=== PATIENT | female | born 1960 | race Caucasian/White ===

== ENCOUNTER 2016-10-13 20:22 | Emergency (ER) | payer OTHER ==
--- NOTE | 2016-10-13 20:36 | PDOC ---
History of Present Illness - General History Source: Patient Exam Limitations: No Limitations - History of Present Illness Initial Comments: 10/13/16 21:00 Patient is a 56 year old female with a significant past medical history of hypertension, osteoarthritis, and CLL who presents to the ED with right sided pelvic pain and right flank pain. Patient states that her pain initiates at the right side of the pelvis migrating to the right sided flank. She reports nausea , but denies vomiting. She reports mild vaginal bleeding today. Patient denies any hx of obstructing kidney stones. Patient notes that she had a D&C on . LMP 2 years ago. PCP - Dr. Fofana PAST MEDICAL HISTORY: no significant history PAST SURGICAL HISTORY: no significant history FAMILY HISTORY: no pertinent history SOCIAL HISTORY: Pt lives with family and is employed. MEDICATIONS: reviewed ALLERGIES: As per nursing notes General: No fevers or chills, no weakness, no weight loss HEENT: No change in vision. No sore throat, No ear pain CardioVascular: No chest pain or shortness of breath Respiratory:No cough, or wheezing. Gastrointestinal: +nausea/ No vomiting, diarrhea or constipation, No rectal bleeding Genitourinary: +right sided pelvic pain, +vaginal bleeding. No dysuria, hematuria, or frequency Musculoskeletal: +right flank pain. No joint or muscle pain or swelling Neurologic: No headache, vertigo, dizziness or loss of consciousness Psychiatric: nor depression Skin: No rashes or easy bruising Endocrine: no increased thirst or abnormal weight change Allergic: no skin or latex allergy All other systems reviewed and normal General: Well-nourished well-developed individual, no acute distress HEENT: Throat: Normal, tonsils normal, no erythema or exudate Neck: Supple, no meningeal signs, no lymphadenopathy Eyes:Pupils equal reactive and round, extraocular motion intact Chest: Nontender to palpation Cardiac: S1-S2 normal, regular rate and rhythm, no murmurs rubs or gallops Respiratory: Lungs clear to auscultation bilateral Abdomen: Soft, nondistended, normal bowel sounds, nontender to palpation diffusely Extremities: Warm, dry, no cyanosis, clubbing, or edema Musculoskeletal: (+)Right CVA area and right flank tenderness. Skin: No rashes Neuro: Alert and oriented x3, nonfocal exam, grossly intact, normal gait Psych: Normal mood and affect <Mary Ann Dickerson - Last Filed: 10/13/16 21:00> - General History Source: Patient Exam Limitations: No Limitations - History of Present Illness Initial Comments: 10/13/16 22:32 A portion of this note was documented by scribe services under my direction. I have reviewed the details of the note, within reason, and agree with the documentation. The case summary and management plan written by me. Assessment and plan: This is a 56-year-old female who comes in complaining of right flank pain. Patient had a workup including a CAT scan that showed a 3-4 mm stone at the right U P.J. The patient given prescriptions for Percocet and Flomax. Patient was told to follow-up with a urologist and strain her urine. Patient's blood work did show a markedly elevated white count of 28,000. However patient has CLL and her baseline white count she said is normally around 34,000. <Apryl Hilton I - Last Filed: 10/13/16 22:38> - General Chief Complaint: Pain Stated Complaint: PELVIC PAIN Time Seen by Provider: 10/13/16 20:36 Past History <Mary Ann Dickerson - Last Filed: 10/13/16 21:00> - Past Medical History Cancer: Yes (cll) HTN: Yes HIV: Yes - Surgical History Cholecystectomy: Yes - Reproductive History (#): 2 Para: 2 - Psycho/Social/Smoking Cessation Hx Anxiety: No Suicidal Ideation: No Smoking History: Unknown if ever smoked Have you smoked in the past 12 months: No Hx Alcohol Use: No Substance Use Type: None <Apryl Hilton I - Last Filed: 10/13/16 22:38> - Past Medical History Allergies/Adverse Reactions: Allergies Allergy/AdvReac Type Severity Reaction Status Date / Time bee venom protein (honey bee) Allergy Severe Verified 10/13/16 21:26 latex Allergy Mild Verified 10/13/16 20:35 contrast dye Allergy Uncoded 11/16/13 22:08 Home Medications: Ambulatory Orders Ondansetron [Zofran Odt -] 4 mg SL TID PRN #14 od.tablet 11/17/13 Duloxetine HCl [Cymbalta] 60 mg PO HS 10/13/16 Etodolac [Etodolac ER] 500 mg PO DAILY PRN 10/13/16 Hydrochlorothiazide [Hctz -] 12.5 mg PO DAILY PRN 10/13/16 Hydrocodone/Acetaminophen [Vicodin Hp 10-300 mg Tablet] 1 each PO QID PRN Lutein Extract/Zeaxanthin Ext [Lutein 15 mg Softgel] 1 each PO DAILY 10/13/16 Metoprolol Succinate [Toprol Xl] 50 mg PO HS 10/13/16 Omeprazole 20 mg PO ASDIR PRN 10/13/16 Oxycodone HCl/Acetaminophen [Percocet 5-325 mg Tablet] 1 - 2 tab PO Q4H #20 tablet MDD 8 10/13/16 Pregabalin [Lyrica -] 75 mg PO BID 10/13/16 Tamsulosin HCl [Flomax] 0.4 mg PO DAILY #30 cap.er.24h 10/13/16 *Physical Exam - Vital Signs Last Vital Signs Temp Pulse Resp BP Pulse Ox 98.6 F 88 15 177/85 100 10/13/16 20:34 10/13/16 20:34 10/13/16 20:34 10/13/16 20:34 10/13/16 20:34 <Mary Ann Dickerson - Last Filed: 10/13/16 21:00> ED Treatment Course - LABORATORY CBC & Chemistry Diagram: 10/13/16 21:00 10/13/16 21:00 <Apryl Hilton I - Last Filed: 10/13/16 22:38> *DC/Admit/Observation/Transfer - Attestations Scribe Attestion: 10/13/16 21:01 Documentation prepared by ALEXIS Key, acting as medical librarian for Apryl Hilton MD. <Mary Ann Dickerson - Last Filed: 10/13/16 21:00> - Discharge Dispostion Admit: No <Apryl Hilton I - Last Filed: 10/13/16 22:38> Diagnosis at time of Disposition: Renal colic on right side - Discharge Dispostion Disposition: HOME Condition at time of disposition: Good - Prescriptions Prescriptions: Tamsulosin HCl [Flomax] 0.4 mg PO DAILY #30 cap.er.24h Oxycodone HCl/Acetaminophen [Percocet 5-325 mg Tablet] 1 - 2 tab PO Q4H #20 tablet MDD 8 - Referrals Referrals: Jacob oFfana MD [Primary Care Provider] - Boaz Logan MD [Staff Physician] - - Patient Instructions Printed Discharge Instructions: DI for Kidney Stones Additional Instructions: for the pain you can take ibuprofen however it may not be strong enough and you may need to take something stronger if he needs something stronger take Percocet one or 2 tablets as often as every 8 hours. If you take a Percocet you cannot drive or do anything that requires your concentration. Strain your urine. For nausea take your Zofran. Take Flomax to help keep the urine flowing. Follow-up with a urologist this week if possible. Dr. Logan. Return to the emergency department immediately with ANY new, persistent or worsening symptoms. Continue any medications as previously prescribed by your physician. You should follow up with your primary doctor as soon as possible regarding today's emergency department visit. . Please make sure your doctor reviews the results of your emergency evaluation. Thank you for coming to the Emergency Department today for your care. It was a pleasure to see you today. Please note that your evaluation is INCOMPLETE until you follow-up with your doctor.
[2016-10-13] MEDS ORDERED: SODIUM CHLORIDE 1,000 ML IV ONE (20:47)
[2016-10-13] MEDS ORDERED: KETOROLAC TROMETHAMINE 30 MG/1 ML VIAL IVPUSH ONE (20:47)
[2016-10-13] MEDS ORDERED: morphine CARPU-JECT 2 MG/1 ML DISP.SYRIN IVPUSH ONE (20:47)
[2016-10-13 20:53] VITALS: BP 177/85; PULSE 88; TEMP 98.6; BMI 28.7
[2016-10-13 21:03] LABS: PH,URINE 5.5 (4.5-8); URINE APPEARANCE Clear; URINE BILIRUBIN 2+ (NEGATIVE); URINE GLUCOSE (UA) Negative (NEGATIVE); URINE KETONE Negative (NEGATIVE); URINE NITRITE Negative (NEGATIVE); URINE PROTEIN Negative (NEGATIVE); URINE UROBILINOGEN 0.2 E.U/dl (0.2-1.0)
[2016-10-13] MEDS ORDERED: KETOROLAC TROMETHAMINE 30 MG/1 ML VIAL ONE (21:07)
[2016-10-13] MEDS ORDERED: morphine CARPU-JECT 2 MG/1 ML DISP.SYRIN ONE (21:07)
[2016-10-13 21:13] LABS: MCH 26.8 pg (25.7-33.7); MCHC 33.2 g/dl (32.0-36.0); MEAN CELL VOLUME 80.9 fl (80-96); MEAN PLT VOLUME 8.5 fl (7.5-11.1); PLATELET COUNT 263 K/MM3 (134-434); RDW 16.3 % (11.6-15.6); WHITE BLOOD COUNT 28.9 K/mm3 (4.0-10.8)
[2016-10-13 21:16] LABS: URINE BLOOD 3+ (NEGATIVE); URINE COLOR YELLOW; URINE LEUK ESTERASE 1+ (NEGATIVE)
[2016-10-13 21:29] LABS: ALBUMIN 4.3 g/dl (3.5-5.0); ALK PHOS 108 U/L (32-92); ANION GAP 10 (8-16); BILIRUBIN,TOTAL 0.4 mg/dl (0.2-1.0); CALCIUM 9.4 mg/dl (8.4-10.2); CO2 25 mmol/L (22-28); CREATININE 1.1 mg/dl (0.6-1.3); GLUCOSE,RANDOM 99 mg/dl (74-106); SGOT/AST 20 U/L (10-42); SGPT/ALT 20 U/L (10-40)
[2016-10-13 21:46] LABS: URINE RBC 20-30 /hpf (0-3)
[2016-10-13 21:47] LABS: URINE BACTERIA FEW /hpf (NEGATIVE)
[2016-10-13 21:55] LABS: PLATELET ESTIMATE ADEQUATE (NORMAL)
[2016-10-13] MEDS ORDERED: NITROFURANTOIN MACROCRYSTAL 50 MG CAPSULE (FP) ONE (22:40)
[2016-10-13] MEDS ORDERED: NITROFURANTOIN MACROCRYSTAL 50 MG CAPSULE (FP) PO SCH (22:45)
== END 2016-10-13 22:43 | disposition home or self-care (01) ==
LOC: FER 20:22
PROC: 3E0333Z Introduction of Anti-inflammatory into Peripheral Vein, Percutaneous Approach (ICD-10-PCS; principal; 2016-10-13)
PROC: 3E033NZ Introduction of Analgesics, Hypnotics, Sedatives into Peripheral Vein, Percutaneous Approach (ICD-10-PCS; 2016-10-13)
PROC: 3E0337Z Introduction of Electrolytic and Water Balance Substance into Peripheral Vein, Percutaneous Approach (ICD-10-PCS; 2016-10-13)
DX: N23 Unspecified renal colic (principal); I10 Essential (primary) hypertension; C91.10 Chronic lymphocytic leukemia of B-cell type not having achieved remission; M19.90 Unspecified osteoarthritis, unspecified site
CPT/HCPCS: 36415; 74176-TC; 80053; 81003; 81015; 85025; 99281-25

== ENCOUNTER 2016-10-18 02:28 | Inpatient (IN) | payer OTHER ==
[2016-10-18] MEDS ORDERED: morphine CARPU-JECT 10 MG/1 ML DISP.SYRIN IVPUSH ONE (02:36)
[2016-10-18] MEDS ORDERED: morphine CARPU-JECT 10 MG/1 ML DISP.SYRIN ONE (02:37)
--- NOTE | 2016-10-18 02:43 | PDOC ---
History of Present Illness - General Chief Complaint: Pain, Acute Stated Complaint: PAIN - History of Present Illness Initial Comments: 10/18/16 05:48 known R sided ureteral stone, scheduled for lithotripsy on Thursday presents with increased pain, now radiating to bladder no fever/ chills + urinary frequency pmh: CLL "they're just watching it" fhx: non-contributory ros: reviewed and otherwise negative pe: GENERAL: [The patient is awake, alert, and fully oriented, and in no apparent distress.] HEAD: [Normal with no signs of trauma.] EYES: [Pupils equal, round and reactive to light, extraocular movements intact, sclera anicteric, conjunctiva are normal.] ENT: [TMs normal, nares patent, oropharynx clear without exudates. Moist mucous membranes.] NECK: [Normal range of motion, supple without lymphadenopathy, JVD, or masses.] LUNGS: [Breath sounds equal, clear to auscultation bilaterally. No wheezes, and no crackles.] HEART: [Regular rate and rhythm, normal S1 and S2 without murmur, rub or gallop.] ABDOMEN: [Soft, nontender, normoactive bowel sounds. No guarding, no rebound. No masses appreciated.] BAck: + R CVAT EXTREMITIES: [Normal range of motion, no edema. No clubbing or cyanosis. No cords, erythema, or tenderness.] NEUROLOGICAL: [Cranial nerves II through XII grossly intact. Normal speech, normal gait.] PSYCH: [Normal mood, normal affect.] SKIN: [Warm, Dry, normal turgor, no rashes or lesions noted.] a/p ureterocolic analgesia image 10/18/16 06:11 10/18/16 06:56 Past History - Past Medical History Allergies/Adverse Reactions: Allergies Allergy/AdvReac Type Severity Reaction Status Date / Time bee venom protein (honey bee) Allergy Severe Verified 10/13/16 21:26 latex Allergy Mild Verified 10/13/16 20:35 contrast dye Allergy Uncoded 11/16/13 22:08 Home Medications: Ambulatory Orders Ondansetron [Zofran Odt -] 4 mg SL TID PRN #14 od.tablet 11/17/13 Duloxetine HCl [Cymbalta] 60 mg PO HS 10/13/16 Etodolac [Etodolac ER] 500 mg PO DAILY PRN 10/13/16 Hydrochlorothiazide [Hctz -] 12.5 mg PO DAILY PRN 10/13/16 Hydrocodone/Acetaminophen [Vicodin Hp 10-300 mg Tablet] 1 each PO QID PRN Lutein Extract/Zeaxanthin Ext [Lutein 15 mg Softgel] 1 each PO DAILY 10/13/16 Metoprolol Succinate [Toprol Xl] 50 mg PO HS 10/13/16 Nitrofurantoin Monohyd/M-Cryst [Macrobid -] 100 mg PO BID #14 capsule 10/13/16 Omeprazole 20 mg PO ASDIR PRN 10/13/16 Oxycodone HCl/Acetaminophen [Percocet 5-325 mg Tablet] 1 - 2 tab PO Q4H #20 tablet MDD 8 10/13/16 Pregabalin [Lyrica -] 75 mg PO BID 10/13/16 Tamsulosin HCl [Flomax] 0.4 mg PO DAILY #30 cap.er.24h 10/13/16 Cancer: Yes (cll) Disorders: Yes (S/P D&C SEPTEMBER 2016) HTN: Yes HIV: Yes Kidney Stones: Yes - Surgical History Cholecystectomy: Yes - Reproductive History (#): 2 Para: 2 - Psycho/Social/Smoking Cessation Hx Anxiety: No Suicidal Ideation: No Smoking History: Never smoked Have you smoked in the past 12 months: No Hx Alcohol Use: No Drug/Substance Use Hx: No Substance Use Type: None *Physical Exam - Vital Signs Last Vital Signs Temp Pulse Resp BP Pulse Ox 98.4 F 89 18 149/85 99 10/18/16 02:29 10/18/16 02:29 10/18/16 02:29 10/18/16 02:29 10/18/16 02:29 *DC/Admit/Observation/Transfer Diagnosis at time of Disposition: Ureteric colic - Discharge Dispostion Condition at time of disposition: Stable Admit: Yes
[2016-10-18] MEDS ORDERED: HYDROmorphone HCL CARPU-JECT 1 MG/1 ML DISP.SYRIN IVPUSH ONE ×3 (03:03→07:38)
[2016-10-18] MEDS ORDERED: HYDROmorphone HCL CARPU-JECT 1 MG/1 ML DISP.SYRIN ONE ×3 (03:05→07:40)
[2016-10-18] MEDS ORDERED: HYDROCHLOROTHIAZIDE 12.5 MG CAPSULE (FP) PO PRN ×2 (07:08→10:26)
--- NOTE | 2016-10-18 07:26 | PDOC ---
*Physical Exam - Vital Signs Last Vital Signs Temp Pulse Resp BP Pulse Ox 98.7 F 75 18 143/86 98 10/18/16 07:19 10/18/16 07:19 10/18/16 02:29 10/18/16 07:19 10/18/16 07:19 ED Treatment Course - Medications Given in the ED: ED Medications Discontinued Medications Generic Name Dose Route Start Last Admin Trade Name Alayna PRN Reason Stop Dose Admin Hydromorphone HCl 1 mg 10/18/16 03:03 10/18/16 03:06 Dilaudid Injection - IVPUSH 10/18/16 03:04 1 mg ONCE ONE Administration Hydromorphone HCl 1 mg 10/18/16 04:03 10/18/16 04:04 Dilaudid Injection - IVPUSH 10/18/16 04:04 1 mg ONCE ONE Administration Morphine Sulfate 8 mg 10/18/16 02:36 10/18/16 02:44 Morphine Injection - IVPUSH 10/18/16 02:37 8 mg ONCE ONE Administration Medical Decision Making - Medical Decision Making 10/18/16 07:25 Pt signed out to me by Dr. Tariq as pending admission for renal stone with intractable pain. *DC/Admit/Observation/Transfer Diagnosis at time of Disposition: Ureter colic - Discharge Dispostion Condition at time of disposition: Stable - Referrals Referrals: Jacob Fofana MD [Primary Care Provider] - - Patient Instructions - Post Discharge Activity
[2016-10-18 07:42] LABS: MCH 27.2 pg (25.7-33.7); MCHC 33.8 g/dl (32.0-36.0); MEAN CELL VOLUME 80.4 fl (80-96); PLATELET COUNT 236 K/MM3 (134-434); RDW 15.6 % (11.6-15.6); WHITE BLOOD COUNT 24.2 K/mm3 (4.0-10.8)
[2016-10-18 07:57] LABS: ALBUMIN 4.2 g/dl (3.5-5.0); ALK PHOS 106 U/L (32-92); ANION GAP 4 (8-16); BILIRUBIN,TOTAL 0.7 mg/dl (0.2-1.0); CALCIUM 9.3 mg/dl (8.4-10.2); CO2 28 mmol/L (22-28); CREATININE 1.1 mg/dl (0.6-1.3); GLUCOSE,RANDOM 105 mg/dl (74-106); SGOT/AST 23 U/L (10-42); SGPT/ALT 25 U/L (10-40); TOT PROT 6.5 g/dl (6.4-8.3)
[2016-10-18 08:11] LABS: PH,URINE 5.5 (4.5-8); URINE APPEARANCE Clear; URINE BILIRUBIN Negative (NEGATIVE); URINE GLUCOSE (UA) Negative (NEGATIVE); URINE KETONE Negative (NEGATIVE); URINE LEUK ESTERASE Trace (NEGATIVE); URINE NITRITE Negative (NEGATIVE); URINE PROTEIN Negative (NEGATIVE); URINE UROBILINOGEN 0.2 E.U/dl (0.2-1.0)
[2016-10-18 08:12] LABS: URINE BLOOD 3+ (NEGATIVE)
[2016-10-18] MEDS ORDERED: PATIENT'S OWN MEDICATION (NON-FORMULARY) (Omeprazole 20 MG) PO PRN (08:13)
[2016-10-18] MEDS ORDERED: HYDROmorphone HCL CARPU-JECT 1 MG/1 ML DISP.SYRIN IVPUSH PRN (08:14)
[2016-10-18] MEDS ORDERED: ONDANSETRON 4 MG/2 ML VIAL IVPB PRN (08:16)
[2016-10-18 08:21] LABS: URINE RBC 50-80 /hpf (0-3)
[2016-10-18] MEDS: DEXTROSE 5%-0.45% SALINE 1,000 ML IV SCH (08:35)
[2016-10-18 08:53] LABS: PLATELET ESTIMATE NORMAL (NORMAL)
--- NOTE | 2016-10-18 09:06 | CON.GU ---
Consult Consult Specialty:: Referred by:: ED Reason for Consultation:: right ureteral stone - History of Present Illness Chief Complaint: right ureteral stone History of Present Illness: 56 year old female with a right ureteral stone. She is scheduled for an ESWL on 10/22/16, however she had worsening pain this morning. CT reveals a 4mm stone which had progressed down the ureter compared to previous imaging, with hydronephrosis. No fevers or signs of sepsis. elevated WBC c/w with her CLL. Currently she looks comfortable - History Source History Provided By: Patient, Medical Record Limitations to Obtaining History: No Limitations - Past Medical History Renal/: Yes: Renal Calculi ...LMP: 09/16/13 - Alcohol/Substance Use Hx Alcohol Use: No - Smoking History Smoking history: Never smoked Have you smoked in the past 12 months: No Home Medications - Allergies Allergies/Adverse Reactions: Allergies Allergy/AdvReac Type Severity Reaction Status Date / Time bee venom protein (honey bee) Allergy Severe Verified 10/13/16 21:26 latex Allergy Mild Verified 10/13/16 20:35 contrast dye Allergy Uncoded 11/16/13 22:08 - Home Medications Home Medications: Ambulatory Orders Ondansetron [Zofran Odt -] 4 mg SL TID PRN #14 od.tablet 11/17/13 Duloxetine HCl [Cymbalta] 60 mg PO HS 10/13/16 Etodolac [Etodolac ER] 500 mg PO DAILY PRN 10/13/16 Hydrochlorothiazide [Hctz -] 12.5 mg PO DAILY PRN 10/13/16 Hydrocodone/Acetaminophen [Vicodin Hp 10-300 mg Tablet] 1 each PO QID PRN Lutein Extract/Zeaxanthin Ext [Lutein 15 mg Softgel] 1 each PO DAILY 10/13/16 Metoprolol Succinate [Toprol Xl] 50 mg PO HS 10/13/16 Nitrofurantoin Monohyd/M-Cryst [Macrobid -] 100 mg PO BID #14 capsule 10/13/16 Omeprazole 20 mg PO ASDIR PRN 10/13/16 Oxycodone HCl/Acetaminophen [Percocet 5-325 mg Tablet] 1 - 2 tab PO Q4H #20 tablet MDD 8 10/13/16 Pregabalin [Lyrica -] 75 mg PO BID 10/13/16 Tamsulosin HCl [Flomax] 0.4 mg PO DAILY #30 cap.er.24h 10/13/16 Review of Systems - Review of Systems Constitutional: denies: Chills, Fever Genitourinary: reports: Flank Pain. denies: Dysuria Physical Exam- Vital Signs: Vital Signs Temperature 98.7 F 10/18/16 07:19 Pulse Rate 75 10/18/16 07:19 Respiratory Rate 18 10/18/16 02:29 Blood Pressure 143/86 10/18/16 07:19 O2 Sat by Pulse Oximetry (%) 98 10/18/16 07:19 Constitutional: Yes: Well Nourished, No Distress, Calm Renal/: Yes: CVA Tenderness - Right. No: Bladder Distention, CVA Tenderness - Left, Nielsen Present, Hematuria Labs: CBC, BMP 10/18/16 07:32 10/18/16 07:35 Imaging - Results Cat Scan: Report Reviewed Problem List - Problems (1) Calculus of distal right ureter Assessment/Plan: stone has a high likelihood of passage due to size and positiion. medical expulsive therapy. strain all urine. Code(s): N20.1 - CALCULUS OF URETER (2) Hydronephrosis Code(s): N13.30 - UNSPECIFIED HYDRONEPHROSIS
[2016-10-18] MEDS ORDERED: CEFAZOLIN 1 GM in DEXTROSE 5%-WATER - 50 ML IVPB ONE ×2 (09:07→10:30)
[2016-10-18] MEDS ORDERED: ceFAZolin SODIUM 1 GM VIAL ONE (09:23)
[2016-10-18] MEDS ORDERED: LEVOFLOXACIN 500 MG IVPB 100 ML IVPB SCH (10:00)
[2016-10-18 10:12] VITALS: BMI 27.8
[2016-10-18] MEDS: TAMSULOSIN HCL 0.4 MG CAP.ER.24H (FP) PO SCH ×3 (10:25→21:25)
[2016-10-18] MEDS: DOCUSATE SODIUM 100 MG CAPSULE (FP) PO SCH ×2 (10:37→21:24)
--- NOTE | 2016-10-18 11:12 | HP ---
Admitting History and Physical - Admission Chief Complaint: back/ flank pain History of Present Illness: 56 yo F recently diagnosed with kidney stone. Has seen urologist and was set up for lithotripsy procedure next week, but pain increased and advised to come to ED. Feels better since getting dilaudid in ED for pain. No nausea. Had been on abx, flomax, percocet at home for the stone, but percocet did not help with pain. History Source: Patient, Medical Record Limitations to Obtaining History: No Limitations - Past Medical History Cardiovascular: Yes: HTN Renal/: Yes: Renal Calculi ...LMP: 09/16/13 Heme/Onc: Yes: Other (CLL) Musculoskeletal: Yes: Osteoarthritis - Smoking History Smoking history: Never smoked Have you smoked in the past 12 months: No - Alcohol/Substance Use Hx Alcohol Use: No Home Medications - Allergies Allergies/Adverse Reactions: Allergies Allergy/AdvReac Type Severity Reaction Status Date / Time bee venom protein (honey bee) Allergy Severe Verified 10/13/16 21:26 latex Allergy Mild Verified 10/13/16 20:35 contrast dye Allergy Uncoded 11/16/13 22:08 - Home Medications Home Medications: Ambulatory Orders Ondansetron [Zofran Odt -] 4 mg SL TID PRN #14 od.tablet 11/17/13 Duloxetine HCl [Cymbalta] 60 mg PO HS 10/13/16 Etodolac [Etodolac ER] 500 mg PO DAILY PRN 10/13/16 Hydrochlorothiazide [Hctz -] 12.5 mg PO DAILY PRN 10/13/16 Hydrocodone/Acetaminophen [Vicodin Hp 10-300 mg Tablet] 1 each PO QID PRN Lutein Extract/Zeaxanthin Ext [Lutein 15 mg Softgel] 1 each PO DAILY 10/13/16 Metoprolol Succinate [Toprol Xl] 50 mg PO HS 10/13/16 Nitrofurantoin Monohyd/M-Cryst [Macrobid -] 100 mg PO BID #14 capsule 10/13/16 Omeprazole 20 mg PO ASDIR PRN 10/13/16 Oxycodone HCl/Acetaminophen [Percocet 5-325 mg Tablet] 1 - 2 tab PO Q4H #20 tablet MDD 8 10/13/16 Pregabalin [Lyrica -] 75 mg PO BID 10/13/16 Tamsulosin HCl [Flomax] 0.4 mg PO DAILY #30 cap.er.24h 10/13/16 Family Disease History - Family Disease History Family Disease History: Diabetes: Mother (CVA), Heart Disease: Mother, CA: Mother Review of Systems - Review of Systems Constitutional: denies: Chills, Fever Eyes: reports: No Symptoms HENT: denies: Difficult Swallowing, Epistaxis, Throat Pain Neck: reports: No Symptoms Cardiovascular: denies: Chest Pain, Palpitations Respiratory: denies: Cough, SOB, Wheezing Gastrointestinal: denies: Melena, Nausea, Vomiting Genitourinary: reports: Flank Pain (right side) Physical Examination Vital Signs: Vital Signs Temperature 98.9 F 10/18/16 10:23 Pulse Rate 67 10/18/16 10:23 Respiratory Rate 18 10/18/16 10:23 Blood Pressure 142/76 10/18/16 10:23 O2 Sat by Pulse Oximetry (%) 98 10/18/16 10:07 Constitutional: Yes: Well Nourished, No Distress, Calm Eyes: Yes: Conjunctiva Clear, EOM Intact, PERRL HENT: Yes: Atraumatic, Normocephalic Neck: Yes: Supple, Trachea Midline Cardiovascular: Yes: Regular Rate and Rhythm, S1, S2. No: Murmur Respiratory: Yes: Regular, CTA Bilaterally. No: Rales, Rhonchi, Wheezes Gastrointestinal: Yes: Normal Bowel Sounds, Soft. No: Distention, Tenderness Edema: No Neurological: Yes: Alert, Oriented Labs: Laboratory Tests 10/18/16 10/18/16 10/18/16 07:32 07:35 08:05 WBC 24.2 H RBC 4.44 Hgb 12.1 Hct 35.7 MCV 80.4 MCH 27.2 MCHC 33.8 RDW 15.6 Plt Count 236 MPV 8.0 Neutrophils % 31.0 L D Lymphocytes % 66.0 H Monocytes % 3.0 L Platelet Estimate Normal Sodium 138 Potassium 4.0 Chloride 106 Carbon Dioxide 28 Anion Gap 4 L BUN 15 Creatinine 1.1 Creat Clearance w eGFR 51.76 Random Glucose 105 Calcium 9.3 Total Bilirubin 0.7 D AST 23 ALT 25 D Alkaline Phosphatase 106 H Total Protein 6.5 Albumin 4.2 Urine Appearance Clear Urine pH 5.5 Ur Specific [place] 1.010 Urine Protein Negative Urine Glucose (UA) Negative Urine Ketones Negative Urine Blood 3+ H Urine Nitrite Negative Urine Bilirubin Negative Urine Urobilinogen 0.2 e.u/dl Ur Leukocyte Esterase Trace Urine RBC 50-80 Urine WBC 1-3 Ur Epithelial Cells Few Imaging - Results Cat Scan: Report Reviewed (CT abd/pelv -4mm right distal ureteral stone ( advanced further than study on 10/13) -right hydronephrosis present) Problem List - Problems (1) Calculus of distal right ureter Assessment/Plan: -seen by urology -cont IV fluids, flomax (abx for now for UTI) Code(s): N20.1 - CALCULUS OF URETER (2) Renal colic on right side Assessment/Plan: -pain control Code(s): N23 - UNSPECIFIED RENAL COLIC (3) CLL (chronic lymphocytic leukemia) Assessment/Plan: -stable WBC Code(s): C91.10 - CHRONIC LYMPHOCYTIC LEUK OF B-CELL TYPE NOT ACHIEVE REMIS (4) Osteoarthritis Assessment/Plan: -holding off NSAID's, pending possible urinary procedure Code(s): M19.90 - UNSPECIFIED OSTEOARTHRITIS, UNSPECIFIED SITE
[2016-10-18] MEDS: HYDROmorphone HCL CARPU-JECT 1 MG/1 ML DISP.SYRIN IVPUSH PRN ×2 (12:08→18:23)
[2016-10-18] MEDS: METOPROLOL SUCCINATE 50 MG TAB.SR.24H (FP) PO SCH (21:24)
[2016-10-19] MEDS: HYDROmorphone HCL CARPU-JECT 1 MG/1 ML DISP.SYRIN IVPUSH PRN ×5 (03:15→20:41)
[2016-10-19] MEDS: TAMSULOSIN HCL 0.4 MG CAP.ER.24H (FP) PO SCH ×3 (09:37→22:04)
[2016-10-19] MEDS: DOCUSATE SODIUM 100 MG CAPSULE (FP) PO SCH ×2 (09:37→22:04)
[2016-10-19] MEDS: LEVOFLOXACIN 500 MG IVPB 100 ML IVPB SCH (09:37)
--- NOTE | 2016-10-19 11:12 | PN ---
Progress Note, Physician History of Present Illness: Still having right sided pain, seen by urology yesterday. - Current Medication List Current Medications: Active Medications Docusate Sodium (Colace -) 100 mg PO BID [facility] Last Admin: 10/19/16 09:37 Dose: 100 mg Hydrochlorothiazide (Hctz -) 12.5 mg PO DAILY PRN PRN Reason: EDEMA Hydromorphone HCl (Dilaudid Injection -) 1 mg IVPUSH Q4H PRN PRN Reason: PAIN Stop: 10/21/16 06:28 Last Admin: 10/19/16 08:39 Dose: 1 mg Dextrose/Sodium Chloride (D5-1/2ns -) 1,000 mls @ 125 mls/hr IV ASDIR [facility] Last Admin: 10/18/16 08:35 Dose: 125 mls/hr Levofloxacin (Levaquin 500 Mg Premixed Ivpb -) 100 mls @ 100 mls/hr IVPB DAILY [facility] Last Admin: 10/19/16 09:37 Dose: 100 mls/hr Metoprolol Succinate (Toprol Xl -) 50 mg PO HS [facility] Last Admin: 10/18/16 21:24 Dose: 50 mg Non-Formulary Medication (Hydrocodone/Acetaminophen [Vicodin Hp 10-300 Mg Tablet ]) 1 each PO QID PRN PRN Reason: PAIN Non-Formulary Medication (Omeprazole) 20 mg PO DAILY PRN PRN Reason: DYSPEPSIA Ondansetron HCl (Zofran Injection) 4 mg IVPB Q6H PRN PRN Reason: NAUSEA Tamsulosin HCl (Flomax -) 0.4 mg PO DAILY [facility] Last Admin: 10/19/16 09:37 Dose: 0.4 mg Tamsulosin HCl (Flomax -) 0.4 mg PO BID [facility] Last Admin: 10/19/16 09:37 Dose: Not Given - Objective Vital Signs: Vital Signs Temperature 98.4 F 10/19/16 06:00 Pulse Rate 62 10/19/16 06:00 Respiratory Rate 19 10/19/16 06:00 Blood Pressure 107/50 10/19/16 06:00 O2 Sat by Pulse Oximetry (%) 96 10/19/16 06:00 Constitutional: Yes: No Distress, Calm Cardiovascular: Yes: Regular Rate and Rhythm, S1, S2. No: Murmur Respiratory: Yes: Regular, CTA Bilaterally. No: Rales, Rhonchi, Wheezes Gastrointestinal: Yes: Normal Bowel Sounds, Soft. No: Distention, Tenderness Edema: No Neurological: Yes: Alert, Oriented Problem List - Problems (1) Calculus of distal right ureter Code(s): N20.1 - CALCULUS OF URETER (2) Renal colic on right side Code(s): N23 - UNSPECIFIED RENAL COLIC (3) CLL (chronic lymphocytic leukemia) Code(s): C91.10 - CHRONIC LYMPHOCYTIC LEUK OF B-CELL TYPE NOT ACHIEVE REMIS (4) Osteoarthritis Code(s): M19.90 - UNSPECIFIED OSTEOARTHRITIS, UNSPECIFIED SITE Assessment/Plan Current Active Problems CLL (chronic lymphocytic leukemia) (Acute) Calculus of distal right ureter (Acute) Hydronephrosis (Acute) Osteoarthritis (Acute) Ureter colic (Acute) -cont IVF, pain control -check FUA to see if stone visible
[2016-10-19] MEDS: DEXTROSE 5%-0.45% SALINE 1,000 ML IV SCH (13:31)
[2016-10-19] MEDS: PANTOPRAZOLE 40 MG TABLET (FP) PO SCH (19:59)
[2016-10-19] MEDS: METOPROLOL SUCCINATE 50 MG TAB.SR.24H (FP) PO SCH (22:04)
[2016-10-20] MEDS: HYDROmorphone HCL CARPU-JECT 1 MG/1 ML DISP.SYRIN IVPUSH PRN ×3 (01:29→09:43)
[2016-10-20] MEDS: PANTOPRAZOLE 40 MG TABLET (FP) PO SCH (09:43)
[2016-10-20] MEDS: TAMSULOSIN HCL 0.4 MG CAP.ER.24H (FP) PO SCH (09:43)
[2016-10-20] MEDS: LEVOFLOXACIN 500 MG IVPB 100 ML IVPB SCH (09:44)
[2016-10-20] MEDS: DOCUSATE SODIUM 100 MG CAPSULE (FP) PO SCH (09:44)
[2016-10-20] MEDS: DEXTROSE 5%-0.45% SALINE 1,000 ML IV SCH (09:48)
--- NOTE | 2016-10-20 11:04 | PN ---
Progress Note, Physician - Current Medication List Current Medications: Active Medications Docusate Sodium (Colace -) 100 mg PO BID [facility] Last Admin: 10/20/16 09:44 Dose: 100 mg Hydrochlorothiazide (Hctz -) 12.5 mg PO DAILY PRN PRN Reason: EDEMA Hydromorphone HCl (Dilaudid Injection -) 1 mg IVPUSH Q4H PRN PRN Reason: PAIN Stop: 10/21/16 06:28 Last Admin: 10/20/16 09:43 Dose: 1 mg Dextrose/Sodium Chloride (D5-1/2ns -) 1,000 mls @ 125 mls/hr IV ASDIR [facility] Last Admin: 10/20/16 09:48 Dose: 125 mls/hr Levofloxacin (Levaquin 500 Mg Premixed Ivpb -) 100 mls @ 100 mls/hr IVPB DAILY [facility] Last Admin: 10/20/16 09:44 Dose: 100 mls/hr Metoprolol Succinate (Toprol Xl -) 50 mg PO HS [facility] Last Admin: 10/19/16 22:04 Dose: 50 mg Non-Formulary Medication (Hydrocodone/Acetaminophen [Vicodin Hp 10-300 Mg Tablet ]) 1 each PO QID PRN PRN Reason: PAIN Ondansetron HCl (Zofran Injection) 4 mg IVPB Q6H PRN PRN Reason: NAUSEA Pantoprazole Sodium (Protonix -) 40 mg PO DAILY [facility] Last Admin: 10/20/16 09:43 Dose: 40 mg Tamsulosin HCl (Flomax -) 0.4 mg PO BID [facility] Last Admin: 10/20/16 09:43 Dose: 0.4 mg - Objective Vital Signs: Vital Signs Temperature 98.7 F 10/20/16 08:32 Pulse Rate 63 10/20/16 08:32 Respiratory Rate 18 10/20/16 08:59 Blood Pressure 110/58 10/20/16 08:32 O2 Sat by Pulse Oximetry (%) 96 10/20/16 08:59
[2016-10-20 11:16] LABS: ALBUMIN 3.9 g/dl (3.5-5.0); ALK PHOS 99 U/L (32-92); BILIRUBIN,TOTAL 0.6 mg/dl (0.2-1.0); CALCIUM 9.5 mg/dl (8.4-10.2); CREATININE 0.9 mg/dl (0.6-1.3); GLUCOSE,RANDOM 97 mg/dl (74-106); SGOT/AST 22 U/L (10-42); SGPT/ALT 22 U/L (10-40); TOT PROT 6.4 g/dl (6.4-8.3)
[2016-10-20 11:19] LABS: MCH 27.4 pg (25.7-33.7); MCHC 33.7 g/dl (32.0-36.0); MEAN CELL VOLUME 81.5 fl (80-96); PLATELET COUNT 255 K/MM3 (134-434); RDW 16.4 % (11.6-15.6); WHITE BLOOD COUNT 25.2 K/mm3 (4.0-10.8)
--- NOTE | 2016-10-20 12:08 | DS ---
Physical Examination Vital Signs: Vital Signs Temperature 98.7 F 10/20/16 08:32 Pulse Rate 63 10/20/16 08:32 Respiratory Rate 18 10/20/16 08:59 Blood Pressure 110/58 10/20/16 08:32 O2 Sat by Pulse Oximetry (%) 96 10/20/16 08:59 Constitutional: Yes: Well Nourished, No Distress, Calm Cardiovascular: Yes: Regular Rate and Rhythm. No: Gallop, Murmur, Rub Respiratory: Yes: Regular, CTA Bilaterally. No: Rales, Rhonchi, Wheezes Gastrointestinal: Yes: Normal Bowel Sounds, Soft. No: Distention, Tenderness Extremities: Yes: WNL Edema: No Labs: CBC, BMP 10/20/16 10:45 10/20/16 10:45 Discharge Summary Reason For Visit: DX-URETER COLIC Current Active Problems CLL (chronic lymphocytic leukemia) (Acute) Calculus of distal right ureter (Acute) Hydronephrosis (Acute) Osteoarthritis (Acute) Ureter colic (Acute) Hospital Course: Ms Curiel is a very pleasant 56 year old female with CLL who presented to the hospital with nephrolithiasis. She was admitted, hydrated, and her pain was controlled. She was expected to pass the stone but did not. However she did not have hydronephrosis. She was seen by urology and felt she was safe for discharge with close urological follow up. She is safe for discharge home. 32 minutes spent in preparation of this discharge Condition: Stable - Instructions Diet, Activity, Other Instructions: resume previous diet and activity. Keep follow up appointment with urology. Referrals: Jonn Donovan MD [Staff Physician] - Jacob Fofana MD [Primary Care Provider] - Disposition: HOME - Home Medications Comprehensive Discharge Medication List: Ambulatory Orders Ondansetron [Zofran Odt -] 4 mg SL TID PRN #14 od.tablet 11/17/13 Duloxetine HCl [Cymbalta] 60 mg PO HS 10/13/16 Hydrochlorothiazide [Hctz -] 12.5 mg PO DAILY PRN 10/13/16 Lutein Extract/Zeaxanthin Ext [Lutein 15 mg Softgel] 1 each PO DAILY 10/13/16 Metoprolol Succinate [Toprol Xl] 50 mg PO HS 10/13/16 Omeprazole 20 mg PO ASDIR PRN 10/13/16 Pregabalin [Lyrica -] 75 mg PO BID 10/13/16 Hydromorphone HCl [Dilaudid] 2 mg PO Q4H PRN #30 tablet MDD 12mg 10/20/16 Levofloxacin [Levaquin -] 500 mg PO DAILY #5 tablet 10/20/16 Tamsulosin HCl [Flomax -] 0.4 mg PO BID #60 cap.sr 10/20/16
[2016-10-20 13:14] LABS: ANION GAP 4 (8-16); CO2 26 mmol/L (22-28)
[2016-10-20 15:17] VITALS: BP 111/66; PULSE 66; TEMP 98
[2016-10-20 15:20] LABS: SMUDGE CELLS MANY
== END 2016-10-20 16:00 | disposition home or self-care (01) | DRG 694 ==
LOC: FER 02:28 → FM/S 09:40
PROVIDERS: ADMIT Specialist; ATTEND Specialist
DX: N13.2 Hydronephrosis with renal and ureteral calculous obstruction (principal); C91.10 Chronic lymphocytic leukemia of B-cell type not having achieved remission; M19.90 Unspecified osteoarthritis, unspecified site
CPT/HCPCS: 36415; 74020-TC; 74176-TC; 80053; 81003; 81015; 85025; 99282-25

== ENCOUNTER 2017-03-20 21:33 | Emergency (ER) | payer OTHER ==
[2017-03-20] MEDS ORDERED: SODIUM CHLORIDE 1,000 ML IV STA ×2 (21:34→22:16)
[2017-03-20] MEDS ORDERED: MAG HYDROX/AL HYDROX/SIMETH 30 ML UNIT-DOSE CUP PO ONE (21:34)
[2017-03-20] MEDS ORDERED: ACETAMINOPHEN 325 MG TABLET (FP) PO ONE (21:34)
[2017-03-20] MEDS ORDERED: ONDANSETRON 4 MG/2 ML VIAL IVPB ONE ×2 (21:34→22:39)
--- NOTE | 2017-03-20 21:37 | PDOC ---
History of Present Illness - General Chief Complaint: Nausea/Vomiting Stated Complaint: VOMITING SINCE 12 N Time Seen by Provider: 03/20/17 21:34 History Source: Patient Exam Limitations: No Limitations - History of Present Illness Initial Comments: 03/20/17 21:35 57-year-old female with history of CLL with baseline white blood cell count of 34, hypertension, right knee replacement presents with vomiting since 12:30 PM. The patient was recently here with her son in the ER was a patient. He was here with GI symptoms. Subsequently, when the patient returned home, she had several episodes of vomiting. Denies fevers or chills. Denies diarrhea or abdominal pain. She is unable tolerate by mouth so came into the ED for further evaluation. Past History - Past Medical History Allergies/Adverse Reactions: Allergies Allergy/AdvReac Type Severity Reaction Status Date / Time bee venom protein (honey bee) Allergy Severe Verified 10/13/16 21:26 latex Allergy Mild Verified 10/13/16 20:35 contrast dye Allergy Uncoded 11/16/13 22:08 Home Medications: Ambulatory Orders Ondansetron [Zofran Odt -] 4 mg SL TID PRN #14 od.tablet 11/17/13 Duloxetine HCl [Cymbalta] 60 mg PO HS 10/13/16 Hydrochlorothiazide [Hctz -] 12.5 mg PO DAILY PRN 10/13/16 Lutein Extract/Zeaxanthin Ext [Lutein 15 mg Softgel] 1 each PO DAILY 10/13/16 Metoprolol Succinate [Toprol Xl] 50 mg PO HS 10/13/16 Omeprazole 20 mg PO ASDIR PRN 10/13/16 Pregabalin [Lyrica -] 75 mg PO BID 10/13/16 Hydromorphone HCl [Dilaudid] 2 mg PO Q4H PRN #30 tablet MDD 12mg 10/20/16 Levofloxacin [Levaquin -] 500 mg PO DAILY #5 tablet 10/20/16 Tamsulosin HCl [Flomax -] 0.4 mg PO BID #60 cap.sr 10/20/16 Famotidine [Pepcid] 20 mg PO BID PRN #14 tablet 03/20/17 Mag Hydrox/Al Hydrox/Simeth [Mylanta Suspension -] 30 ml PO Q6H PRN #1 bottle Ondansetron [Zofran Odt -] 4 mg SL TID PRN #21 od.tablet 03/20/17 Cancer: Yes (cll) Disorders: Yes (S/P D&C SEPTEMBER 2016) HTN: Yes Kidney Stones: Yes - Surgical History Cholecystectomy: Yes - Reproductive History (#): 2 Para: 2 - Suicide/Smoking/Psychosocial Hx Smoking History: Never smoked Have you smoked in the past 12 months: No Hx Alcohol Use: No Drug/Substance Use Hx: No Substance Use Type: None Hx Substance Use Treatment: No Review of Systems - Review of Systems Able to Perform ROS?: Yes Comments:: 03/20/17 21:36 GENERAL/CONSTITUTIONAL: No fever, weakness. HEAD, EYES, EARS, NOSE AND THROAT: No change in vision. No ear pain or discharge. No sore throat. CARDIOVASCULAR: No chest pain or shortness of breath. RESPIRATORY: No cough, wheezing, or hemoptysis. GASTROINTESTINAL: + nausea, vomiting, decreased PO intolerance. GENITOURINARY: No dysuria, frequency, or change in urination. MUSCULOSKELETAL: No joint or muscle swelling or pain. No neck or back pain. SKIN: No rash NEUROLOGIC: No headache, vertigo, loss of consciousness, or change in strength/ sensation. ENDOCRINE: No increased thirst. No abnormal weight change. HEMATOLOGIC/LYMPHATIC: No anemia, easy bleeding, or history of blood clots. ALLERGIC/IMMUNOLOGIC: No hives or skin allergy. *Physical Exam - Physical Exam Comments: 03/20/17 21:36 GENERAL: Awake, alert, and fully oriented, in no acute distress. HEAD: No signs of trauma EYES: PERRLA, EOMI, sclera anicteric, conjunctiva clear ENT: Auricles normal inspection, hearing grossly normal, nares patent NECK: Normal ROM, supple LUNGS: Breath sounds equal, clear to auscultation bilaterally. No wheezes, and no crackles HEART: Regular rate and rhythm, normal S1 and S2, no murmurs, rubs or gallops ABDOMEN: Soft, nontender, normoactive bowel sounds. No guarding, no rebound. No masses EXTREMITIES: Normal range of motion, no edema. No clubbing or cyanosis. No cords, erythema, or tenderness NEUROLOGICAL: Cranial nerves II through XII grossly intact. Normal speech, normal gait SKIN: no rashes or lesions noted. + dry mucous membranes ED Treatment Course - LABORATORY CBC & Chemistry Diagram: 03/20/17 21:40 03/20/17 21:40 Medical Decision Making - Medical Decision Making 03/20/17 21:37 Patient's symptoms are consistent with gastroenteritis. We'll obtain blood work , give IV fluids and labs and reassess. 03/20/17 23:41 CBC, BMP 03/20/17 21:40 03/20/17 21:40 CMP Sodium 138 mmol/L (136-145) 03/20/17 21:40 Potassium 4.6 mmol/L (3.5-5.1) 03/20/17 21:40 Chloride 105 mmol/L (98-107) 03/20/17 21:40 Carbon Dioxide 26 mmol/L (22-28) 03/20/17 21:40 Anion Gap 7 (8-16) L 03/20/17 21:40 BUN 20 mg/dl (7-18) H D 03/20/17 21:40 Creatinine 0.8 mg/dl (0.6-1.3) 03/20/17 21:40 Creat Clearance w eGFR > 60 (>60) 03/20/17 21:40 Random Glucose 116 mg/dl (74-106) H 03/20/17 21:40 Calcium 9.6 mg/dl (8.4-10.2) 03/20/17 21:40 Magnesium 2.0 mg/dL (1.8-2.4) 03/20/17 21:40 Total Bilirubin 0.6 mg/dl (0.2-1.0) 03/20/17 21:40 AST 33 U/L (10-42) D 03/20/17 21:40 ALT 27 U/L (10-40) D 03/20/17 21:40 Alkaline Phosphatase 112 U/L (32-92) H 03/20/17 21:40 Total Protein 7.7 g/dl (6.4-8.3) D 03/20/17 21:40 Albumin 4.9 g/dl (3.5-5.0) D 03/20/17 21:40 Lipase 25 U/L (22-51) 03/20/17 21:40 Urine Test Results Urine Color Yellow 03/20/17 22:10 Urine Appearance Clear 03/20/17 22:10 Urine pH 8.5 (4.5-8) H D 03/20/17 22:10 Ur Specific [place] 1.015 (1.005-1.025) 03/20/17 22:10 Urine Protein Negative (NEGATIVE) 03/20/17 22:10 Urine Glucose (UA) Negative (NEGATIVE) 03/20/17 22:10 Urine Ketones Trace (NEGATIVE) 03/20/17 22:10 Urine Blood Negative (NEGATIVE) 03/20/17 22:10 Urine Nitrite Negative (NEGATIVE) 03/20/17 22:10 Urine Bilirubin Negative (NEGATIVE) 03/20/17 22:10 Ur Leukocyte Esterase 1+ (NEGATIVE) H 03/20/17 22:10 Urine RBC 2-5 /hpf (0-3) 03/20/17 22:10 Urine WBC 5-10 (0-5) 03/20/17 22:10 Ur Epithelial Cells Few /HPF 03/20/17 22:10 Urine Bacteria Few /hpf (NEGATIVE) 03/20/17 22:10 No dysuria. Pt's WBC is around baseline. She reports feeling better with the medications and IV fluids. I discussed the physical exam findings, ancillary test results and final diagnoses with the patient. I answered all of the patient's questions. The patient was satisfied with the care received and felt comfortable with the discharge plan and treatment plan. The patient will call their primary care physician within 24 hours to arrange follow-up and will return to the Emergency Department with any new, persistant or worsening symptoms. *DC/Admit/Observation/Transfer Diagnosis at time of Disposition: Gastroenteritis - Discharge Dispostion Disposition: HOME Condition at time of disposition: Improved Admit: No - Prescriptions Prescriptions: Famotidine [Pepcid] 20 mg PO BID PRN #14 tablet PRN Reason: Abdominal Pain Mag Hydrox/Al Hydrox/Simeth [Mylanta Suspension -] 30 ml PO Q6H PRN #1 bottle PRN Reason: Abdominal Pain Ondansetron [Zofran Odt -] 4 mg SL TID PRN #21 od.tablet PRN Reason: Nausea - Referrals - Patient Instructions Printed Discharge Instructions: DI for Nausea -- Adult, DI for Vomiting -- Adult Additional Instructions: Drink plenty of fluids and rest. It may take several days before your symptoms improve. Follow up with your doctor. - Post Discharge Activity
[2017-03-20 21:42] VITALS: TEMP 98.5; BMI 27.1
[2017-03-20] MEDS ORDERED: FAMOTIDINE 20 MG/50 ML IVPB 20 MG/50 ML MG IVPB ONE (21:48)
[2017-03-20] MEDS ORDERED: ONDANSETRON 4 MG/2 ML VIAL ONE ×2 (21:48→23:10)
[2017-03-20 22:00] LABS: MEAN PLT VOLUME 8.8 fl (7.5-11.1)
[2017-03-20] MEDS ORDERED: FAMOTIDINE IV 20 MG/12 ML VIAL IVPUSH SCH (22:00)
[2017-03-20 22:06] LABS: MCH 27.4 pg (25.7-33.7); MCHC 32.8 g/dl (32.0-36.0); MEAN CELL VOLUME 83.8 fl (80-96); PLATELET COUNT 286 K/MM3 (134-434); RDW 14.9 % (11.6-15.6)
[2017-03-20] MEDS ORDERED: MAG HYDROX/AL HYDROX/SIMETH 30 ML UNIT-DOSE CUP ONE (22:08)
[2017-03-20] MEDS ORDERED: ACETAMINOPHEN 325 MG TABLET (FP) ONE (22:08)
[2017-03-20 22:14] LABS: ALBUMIN 4.9 g/dl (3.5-5.0); ALK PHOS 112 U/L (32-92); ANION GAP 7 (8-16); BILIRUBIN,TOTAL 0.6 mg/dl (0.2-1.0); CALCIUM 9.6 mg/dl (8.4-10.2); CO2 26 mmol/L (22-28); CREATININE 0.8 mg/dl (0.6-1.3); GLUCOSE,RANDOM 116 mg/dl (74-106); SGOT/AST 33 U/L (10-42); SGPT/ALT 27 U/L (10-40); TOT PROT 7.7 g/dl (6.4-8.3)
[2017-03-20 22:17] LABS: PH,URINE 8.5 (4.5-8); URINE APPEARANCE Clear; URINE BILIRUBIN Negative (NEGATIVE); URINE BLOOD Negative (NEGATIVE); URINE GLUCOSE (UA) Negative (NEGATIVE); URINE KETONE Trace (NEGATIVE); URINE NITRITE Negative (NEGATIVE); URINE PROTEIN Negative (NEGATIVE); URINE UROBILINOGEN 0.2 (0.2-1.0)
[2017-03-20 22:18] LABS: URINE COLOR YELLOW; URINE LEUK ESTERASE 1+ (NEGATIVE)
[2017-03-20 22:27] LABS: URINE BACTERIA FEW /hpf (NEGATIVE)
[2017-03-20 22:37] LABS: WHITE BLOOD COUNT 35.7 K/mm3 (4.0-10.8)
[2017-03-20 22:38] LABS: PLATELET ESTIMATE ADEQUATE; REACTIVE LYMPHOCYTES 3 % (0-80)
[2017-03-21 00:06] VITALS: BP 148/92; PULSE 98
== END 2017-03-21 00:06 | disposition home or self-care (01) ==
LOC: FER 21:33
DX: K52.9 Noninfective gastroenteritis and colitis, unspecified (principal); I10 Essential (primary) hypertension; C91.10 Chronic lymphocytic leukemia of B-cell type not having achieved remission
CPT/HCPCS: 36415; 80053; 81003; 81015; 83690; 83735; 85025; 99283-25

== ENCOUNTER 2020-08-18 12:02 | Emergency (ER) | payer OTHER ==
[2020-08-18 12:17] VITALS: TEMP 97.7; BMI 25.3
[2020-08-18] MEDS ORDERED: DIPHTH,PERTUSS(ACELL),TET 0.5 ML DISP.SYRIN IM ONE ×2 (13:02→13:07)
[2020-08-18] MEDS ORDERED: DOXYCYCLINE HYCLATE 100 MG CAPSULE PO ONE (13:03)
[2020-08-18 13:17] VITALS: BP 126/80; PULSE 76
== END 2020-08-18 13:17 | disposition home or self-care (01) ==
LOC: JERFT 12:02
PROC: 3E0234Z Introduction of Serum, Toxoid and Vaccine into Muscle, Percutaneous Approach (ICD-10-PCS; principal; 2020-08-18)
DX: S20.362A Insect bite (nonvenomous) of left front wall of thorax, initial encounter (principal)
CPT/HCPCS: 90715; 99284-25

== ENCOUNTER 2021-03-16 19:41 | Emergency (ER) | payer OTHER ==
[2021-03-16 19:53] VITALS: TEMP 97.9; BMI 26.6
[2021-03-16] MEDS ORDERED: LIDOCAINE 5% TOPICAL PATCH TP ONE (20:36)
[2021-03-16] MEDS ORDERED: ACETAMINOPHEN 1000 MG/100 ML VIAL IVPB ONE (20:36)
[2021-03-16] MEDS ORDERED: ACETAMINOPHEN INJECTION 100 ML IVPB ONE (20:53)
[2021-03-16 21:02] LABS: HEMOGLOBIN 12.2 GM/dL (10.7-15.3); MCH 27.1 pg (25.7-33.7); MEAN CELL VOLUME 84.8 fl (80-96); MEAN PLT VOLUME 7.4 fl (7.5-11.1); PLATELET COUNT 227 10^3/uL (134-434); RBC 4.48 M/mm3 (3.60-5.2); RDW 16.5 % (11.6-15.6)
[2021-03-16 21:09] LABS: WHITE BLOOD COUNT 69.8 K/mm3 (4.0-10.0)
[2021-03-16 21:21] LABS: CHLORIDE 108 mmol/L (98-107); SODIUM 142 mmol/L (136-145)
[2021-03-16 21:23] LABS: ALBUMIN 3.9 g/dl (3.4-5.0); ANION GAP 5 MMOL/L (8-16); BLOOD UREA NITROGEN 22.5 mg/dL (7-18); CALCIUM 9.7 mg/dL (8.5-10.1); CO2 30 mmol/L (21-32); GLUCOSE,RANDOM 83 mg/dL (74-106); LIPASE 130 U/L (73-393); MAGNESIUM 2.2 mg/dL (1.8-2.4)
[2021-03-16 21:26] LABS: SGOT/AST 18 U/L (15-37); SGPT/ALT 27 U/L (13-61)
[2021-03-16 21:28] LABS: BILIRUBIN,TOTAL 0.3 mg/dL (0.2-1); TOT PROT 6.8 g/dl (6.4-8.2)
[2021-03-16 21:29] LABS: ALK PHOS 125 U/L (45-117)
[2021-03-16 22:02] LABS: ANISOCYTOSIS 1+; MACROCYTOSIS 1+; PLATELET ESTIMATE NORMAL
[2021-03-16 22:25] LABS: SMUDGE CELLS MODERATE
[2021-03-16] MEDS ORDERED: KETOROLAC TROMETHAMINE 15 MG/ML VIAL IVPUSH ONE (22:25)
[2021-03-16] MEDS ORDERED: KETOROLAC TROMETHAMINE 15 MG/ML VIAL ONE (22:30)
[2021-03-17 01:46] VITALS: BP 150/80; PULSE 65
[2021-03-17] MEDS ORDERED: LIDOCAINE PATCH REMOVAL MC SCH (09:00)
== END 2021-03-17 01:46 | disposition home or self-care (01) ==
LOC: JER 19:41
PROC: 3E0333Z Introduction of Anti-inflammatory into Peripheral Vein, Percutaneous Approach (ICD-10-PCS; principal; 2021-03-16)
PROC: 3E0333Z Introduction of Anti-inflammatory into Peripheral Vein, Percutaneous Approach (ICD-10-PCS; 2021-03-16)
DX: R07.9 Chest pain, unspecified (principal)
CPT/HCPCS: 36415; 71046-TC-FY; 80053; 82550; 83690; 83735; 84484; 85025; 93005; 93010; 99285-25; J0131

== ENCOUNTER 2021-03-18 11:10 | Emergency (ER) | payer OTHER ==
[2021-03-18 11:17] VITALS: BP 140/94; PULSE 65; TEMP 99; BMI 26.6
[2021-03-18] MEDS ORDERED: KETOROLAC TROMETHAMINE 30 MG/1 ML VIAL IM ONE (11:34)
[2021-03-18] MEDS ORDERED: KETOROLAC TROMETHAMINE 30 MG/1 ML VIAL ONE (11:48)
== END 2021-03-18 12:35 | disposition home or self-care (01) ==
LOC: FER 11:10
PROC: 3E0233Z Introduction of Anti-inflammatory into Muscle, Percutaneous Approach (ICD-10-PCS; principal; 2021-03-18)
DX: M25.512 Pain in left shoulder (principal)
CPT/HCPCS: 73030-TC-LT-FY; 93005; 99284-25

== ENCOUNTER 2021-03-20 06:47 | Day surgery (SDC) | payer OTHER ==
[2021-03-19 13:05] VITALS: BMI 26.6
[2021-03-20] MEDS ORDERED: TETRACAINE 0.5% OPHTH SOLN 2 ML BOTTLE ONE (07:31)
[2021-03-20] MEDS ORDERED: NEO/POLYMYX B SULF/DEXAMETH OPHTHALMIC 5ML BOTTLE ONE (07:31)
[2021-03-20] MEDS ORDERED: CARBACHOL 0.01% INTRA-OCULAR 1.5 ML VIAL ONE (07:31)
[2021-03-20] MEDS ORDERED: BSS (NA/CA/MG/K) BALANCED SALT SOLUTION OPHTH SOLN 15 ML BOTTLE ONE (07:31)
[2021-03-20] MEDS ORDERED: LIDOCAINE 1% P/F 10 MG/ML VIAL ONE (07:31)
[2021-03-20] MEDS: TROPICAMIDE 1% OPHTH SOLN 15 ML BOTTLE ONE ×3 (07:55→08:05)
[2021-03-20] MEDS: CIPROFLOXACIN 0.3% EYE DROPS 5 ML BOTTLE ONE ×3 (07:55→08:05)
[2021-03-20] MEDS: PHENYLEPHRINE 2.5% OPHTH SOLN 15 ML BOTTLE ONE ×3 (07:55→08:05)
[2021-03-20] MEDS: CYCLOPENTOLATE 2% OPHTH SOLN 2 ML BOTTLE ONE ×3 (07:55→08:05)
[2021-03-20 08:00] VITALS: TEMP 98.2
[2021-03-20] MEDS ORDERED: MIDAZOLAM HCL 2 MG/2 ML SINGLE DOSE VIAL ONE (09:00)
[2021-03-20 09:47] VITALS: BP 132/70; PULSE 81
== END 2021-03-20 10:00 | disposition home or self-care (01) ==
LOC: FASU 06:47
PROVIDERS: ATTEND Ophthalmology
PROC: 08RJ3JZ Replacement of Right Lens with Synthetic Substitute, Percutaneous Approach (ICD-10-PCS; principal; 2021-03-20 09:03)
DX: H26.8 Other specified cataract (principal)

== ENCOUNTER 2024-01-09 14:35 | Emergency (ER) | payer OTHER ==
[2024-01-09 15:00] VITALS: BP 144/80; PULSE 69; RESP 16; TEMP 98.1; BMI 25.4
[2024-01-09 16:25] LABS: THROAT:GRP A STREP NOT DETECTED (NOTDETECTED)
== END 2024-01-09 17:39 | disposition home or self-care (01) ==
LOC: JER 14:35
DX: H66.91 Otitis media, unspecified, right ear (principal); Z20.822 Contact with and (suspected) exposure to COVID-19
CPT/HCPCS: 0241U-QW; 87651; 99283-25